=== PATIENT | male | born 1960 | race Caucasian/White ===

== ENCOUNTER 2021-08-29 12:47 | Emergency (ER) | payer OTHER ==
[~2021-08-29] VITALS: Ht 180.3 cm; Wt 72.7 kg
[2021-08-29 13:10] VITALS: BP 137/77
== END 2021-08-29 14:41 | disposition left against medical advice (07) ==
LOC: EMS 12:55
DX: Z00.00 Encounter for general adult medical examination without abnormal findings (principal); Z53.21 Procedure and treatment not carried out due to patient leaving prior to being seen by health care provider